=== PATIENT | male | born 1965 | race African-American/Black ===

== ENCOUNTER 2019-01-04 08:52 | Emergency (ER) | payer OTHER ==
[~2019-01-04] VITALS: Ht 170.2 cm; Wt 109.8 kg
[2019-01-04 08:57] VITALS: Ht 170.2 cm; Wt 109.8 kg
[2019-01-04 09:44] LABS: BASOPHIL % 1.1 % (0-2); PLATELET COUNT 215 x10^3mcL (130-400)
[2019-01-04 09:55] LABS: CALCIUM 8.8 mg/dL (8.5-10.1); CARBON DIOXIDE 25.6 mmol/L (21-32); CHLORIDE SERUM 103 mmol/L (98-107); CREATININE SERUM 1.2 mg/dL (0.7-1.3); GFR1 > 60 mL/min; GLUCOSE SERUM 93 mg/dL (74-106); POTASSIUM SERUM 3.6 mmol/L (3.5-5.1); SODIUM SERUM 137 mmol/L (136-145)
[2019-01-04 10:03] LABS: ALBUMIN 3.7 g/dL (3.4-5.0); ALKALINE PHOSPHATASE 68 U/L (46-116); ALT/SGPT 24 U/L (16-63); AST/SGOT 18 U/L (15-37); BILIRUBIN TOTAL 0.3 mg/dL (0.20-1.00); TOTAL PROTEIN, SERUM 8.2 g/dL (6.4-8.2)
[2019-01-04 10:16] LABS: AMPHETAMINE QUAL UR NONE DETECTED (See below)
[2019-01-04 10:56] LABS: FREE T4 1.01 ng/dL (0.76-1.46); FREE THYROXINE INDEX 3.1 ug/dL (1.4-4.5); T4(THYROXINE) 8.5 ug/dL (4.7-13.3)
[2019-01-04 14:23] VITALS: BP 137/78
[2019-01-05 00:15] LABS: T3 TOTAL 1.36 ng/mL
== END 2019-01-04 14:23 | disposition other institution (70) ==
LOC: ED 08:52
PROVIDERS: Emergency Medicine
DX: R00.2 Palpitations (principal); I10 Essential (primary) hypertension; Z76.0 Encounter for issue of repeat prescription
CPT/HCPCS: 36415; 84439; Q0092

== ENCOUNTER 2019-01-04 10:12 | Emergency (ER) | payer OTHER | END 2019-01-04 14:23 | disposition other institution (70) | LOC: ED 10:12 | DX: Z02.89 Encounter for other administrative examinations (principal) ==